=== PATIENT | female | born 1985 | race Caucasian/White ===

== ENCOUNTER 2016-11-02 20:53 | Emergency (ER) | payer BC ==
[2016-11-02 21:07] VITALS: BP 129/69; PULSE 81; TEMP 97.6; BMI 30.4
--- NOTE | 2016-11-02 21:07 | PDOC ---
Rapid Medical Evaluation Time Seen by Provider: 11/02/16 21:02 Medical Evaluation: Allergies Allergy/AdvReac Type Severity Reaction Status Date / Time codeine [Codeine] Allergy Unknown Verified 06/19/15 13:15 Penicillins Allergy Unknown Verified 06/19/15 13:15 gentamycin Allergy Unknown Uncoded 06/18/15 22:42 11/02/16 21:03 31 yo F c/o cp/left upper back pain since this afternoon with nausea/chills while at work. Denies any cough/fever. Pt had similiar symptoms x1.5 year ago while taking wellbutrin for smoking cessation.
--- NOTE | 2016-11-02 21:46 | PDOC ---
History of Present Illness - General History Source: Patient Exam Limitations: No Limitations <Felipe Hood - Last Filed: 11/02/16 22:13> <Enio Garcia - Last Filed: 11/03/16 01:53> - General Chief Complaint: Chest Pain Stated Complaint: CHEST PAINS Time Seen by Provider: 11/02/16 21:02 - History of Present Illness Initial Comments: 11/02/16 21:57 The patient is a 31 year old female, with a significant past medical history of anxiety and depression, who presents to the emergency department with chest pain onset today. She describes the pain as an intermittent pressure, ranging from mild to moderate, without radiation or modifying factors. She notes that when the patient is onset it usually lasts a few minutes. She also reports back pain associated with her symptoms, that is mild in severity. She notes that she had similar episode of chest pain when she had an anxiety attack The patient denies shortness of breath, headache and dizziness. Denies fever, chills, nausea, vomit, diarrhea and constipation. Denies dysuria, frequency, urgency and hematuria. Allergies: Codeine and penicillin Past surgical history: Tubal Ligation Social history: Former smoker (15 year use of a pack a day). No alcohol or drug use reported PMD - Dr. Jayshree Elmore (Felipe Hood) Past History <Felipe Hood - Last Filed: 11/02/16 22:13> - Past Medical History Psychiatric Problems: Yes (depression) - Surgical History Abdominal Surgery: Yes - Immunization History Immunization Up to Date: No - Psycho/Social/Smoking Cessation Hx Anxiety: No Suicidal Ideation: No Smoking Status: Yes Smoking History: Former smoker Have you smoked in the past 12 months: No Number of Cigarettes Smoked Daily: 10 If you are a former smoker, when did you quit?: 06/13/15 Information on smoking cessation initiated: No Hx Alcohol Use: No Drug/Substance Use Hx: No Substance Use Type: None <Enio Garcia - Last Filed: 11/03/16 01:53> - Past Medical History Allergies/Adverse Reactions: Allergies Allergy/AdvReac Type Severity Reaction Status Date / Time codeine [Codeine] Allergy Unknown Verified 11/02/16 21:03 Penicillins Allergy Unknown Verified 11/02/16 21:03 gentamycin Allergy Unknown Uncoded 11/02/16 21:03 Home Medications: Ambulatory Orders NK [No Known Home Medication] 11/02/16 Review of Systems - Review of Systems Able to Perform ROS?: Yes <Felipe Hood - Last Filed: 11/02/16 22:13> <Enio Garcia - Last Filed: 11/03/16 01:53> - Review of Systems Comments:: 11/02/16 21:57 CONSTITUTIONAL: No fever, no chills, no fatigue EYES: No visual changes ENT: No ear pain, no sore throat CARDIOVASCULAR: +Chest pain. No palpitations RESPIRATORY: No cough, no SOB GI: No abdominal pain, no nausea, no vomiting, no constipation, no diarrhea GENITOURINARY: No dysuria, no frequency, no hematuria MUSKULOSKELETAL: +Back pain. No joint pain, no myalgias SKIN: No rash NEURO: No headache (Felipe Hood) *Physical Exam <Felipe Hood - Last Filed: 11/02/16 22:13> <Enio Garcia - Last Filed: 11/03/16 01:53> - Vital Signs Last Vital Signs Temp Pulse Resp BP Pulse Ox 97.6 F 81 18 129/69 100 11/02/16 21:04 11/02/16 21:04 11/02/16 21:04 11/02/16 21:04 11/02/16 21:04 - Physical Exam Comments: 11/02/16 21:57 CONSTITUTIONAL: Well-appearing; well-nourished; in no apparent distress HEAD: Normocephalic; atraumatic EYES: PERRL; EOM intact ENMT: External appears normal; normal oropharynx NECK: Supple; non-tender; no cervical lymphadenopathy CARD: Normal S1, S2; no murmurs, rubs, or gallops RESP: Normal chest excursion with respiration; breath sounds clear and equal bilaterally; no wheezes, rhonchi, or rales ABD: Soft, non-distended; non-tender; no palpable organomegaly, no palpable hernias MUSCULOSKELETAL: +Reproducible left anterior chest wall tenderness. EXT: Normal ROM in all four extremities; non-tender to palpation; distal pulses intact SKIN: Warm, dry, no rash NEURO: No focal neurological deficiencies. (Felipe Hood) Heart Score/ECG Review #1 ECG reviewed & interpreted by me at: 22:14 <Felipe Hood - Last Filed: 11/02/16 22:13> <Enio Garcia - Last Filed: 11/03/16 01:53> #1 11/02/16 22:14 Ventricular rate: 70 bpm Normal sinus rhythm (Felipe Hood) ED Treatment Course - LABORATORY CBC & Chemistry Diagram: 11/02/16 23:35 11/02/16 23:35 <Enio Garcia - Last Filed: 11/03/16 01:53> - ADDITIONAL ORDERS Additional order review: Laboratory Results 11/02/16 11/02/16 23:35 23:35 INR 0.97 D-Dimer < 200 Sodium Cancelled Potassium Cancelled Chloride Cancelled Carbon Dioxide Cancelled Anion Gap Cancelled BUN Cancelled Creatinine Cancelled Creat Clearance w eGFR Cancelled Random Glucose Cancelled Calcium Cancelled Total Bilirubin Cancelled AST Cancelled ALT Cancelled Alkaline Phosphatase Cancelled Creatine Kinase Cancelled Troponin I Cancelled Total Protein Cancelled Albumin Cancelled 11/02/16 23:35 RBC 4.80 MCV 87.9 MCHC 32.5 RDW 15.1 D MPV 8.4 Neutrophils % 81.2 D Lymphocytes % 14.0 D Monocytes % 4.2 Eosinophils % 0.4 Basophils % 0.2 - RADIOLOGY Radiology Studies Ordered: Category Date Time Status CHEST PA & LAT [RAD] Stat Radiology 11/02/16 22:15 Taken Medical Decision Making <Felipe Hood - Last Filed: 11/02/16 22:13> <Enio Garcia - Last Filed: 11/03/16 01:53> - Medical Decision Making 11/03/16 01:52 Patient is a well-appearing 31-year-old female who presents with atypical chest discomfort for the past several hours prior to arrival. In the ER, patient is awake and alert, anxious appearing, with reproducible left parasternal tenderness to palpation. CBC is within normal limit. EKG reveals no evidence of acute ischemia or right sided heart strain. Patient is low probability for PE and d-dimer is within normal limit at this time. Chest x-ray reveals no evidence of cardiomegaly, there is no infiltrate or effusion. I do not suspect ACS or PE at this time. Will discharge with outpatient follow-up as needed. ( Enio Garcia) *DC/Admit/Observation/Transfer <Felipe Hood - Last Filed: 11/02/16 22:13> <Enio Garcia - Last Filed: 11/03/16 01:53> Diagnosis at time of Disposition: Atypical chest pain - Discharge Dispostion Disposition: HOME Condition at time of disposition: Stable - Referrals Referrals: Jayshree Elmore MD [Primary Care Provider] - - Patient Instructions Printed Discharge Instructions: DI for Atypical Chest Pain - Attestations Scribe Attestion: 11/02/16 21:58 Documentation prepared by Felipe Hood, acting as medical records coder for Enio Garcia MD (Felipe Hood) Physician Attestion: 11/03/16 01:52 The documentation was prepared by the scribe under my direct supervision. I have reviewed the documentation which correctly represents the findings, medical decision-making and critical action taken by me. (Enio Garcia)
[2016-11-03 00:09] LABS: BASOPHIL 0.2 % (0-2.0); EOSINOPHIL 0.4 % (0-4.5); MCH 28.5 pg (25.7-33.7); MCHC 32.5 g/dl (32.0-36.0); MEAN CELL VOLUME 87.9 fl (80-96); MEAN PLT VOLUME 8.4 fl (7.5-11.1); NEUTROPHILS 81.2 % (42.8-82.8); PLATELET COUNT 273 K/MM3 (134-434); RDW 15.1 % (11.6-15.6); WHITE BLOOD COUNT 13.9 K/mm3 (4.0-10.0)
[2016-11-03 00:34] LABS: INR 0.97 (0.82-1.09)
[2016-11-03 01:22] LABS: D-DIMER < 200 ng/ml (<200-235)
[2016-11-03 01:46] LABS: ALBUMIN 3.7 g/dl (3.4-5.0); ANION GAP 9 (8-16); BILIRUBIN,TOTAL 0.4 mg/dL (0.2-1.0); CALCIUM 8.1 mg/dL (8.5-10.1); CO2 26 mmol/L (21-32); CREATININE 0.7 mg/dL (0.55-1.02); GLUCOSE,RANDOM 88 mg/dL (74-106); SGOT/AST 12 U/L (15-37); SGPT/ALT 18 U/L (12-78); TOT PROT 7.2 g/dl (6.4-8.2)
[2016-11-03 01:48] LABS: ALK PHOS 63 U/L (45-117); TROPONIN I < 0.02 ng/ml (0.00-0.05)
--- NOTE | 2016-11-03 14:11 | EKG ---
Test Reason : Blood Pressure : / mmHG Vent. Rate : 070 BPM Atrial Rate : 070 BPM P-R Int : 146 ms QRS Dur : 098 ms QT Int : 426 ms P-R-T Axes : 040 063 035 degrees QTc Int : 460 ms NORMAL SINUS RHYTHM NORMAL ECG WHEN COMPARED WITH ECG OF 19-JUN-2015 13:10, NO SIGNIFICANT CHANGE WAS FOUND Confirmed by LEO JACOBS MD ([id number]) on 11/03/2016 2:11:04 PM Referred By: Confirmed By:LEO JACOBS MD
== END 2016-11-03 02:00 | disposition home or self-care (01) ==
LOC: JER 20:53
DX: R07.89 Other chest pain (principal); F41.8 Other specified anxiety disorders
CPT/HCPCS: 36415; 71020-TC; 80053; 82550; 84484; 85025; 85379; 85610; 93005; 93010; 99281-25

== ENCOUNTER 2017-05-31 14:52 | Emergency (ER) | payer BC ==
[2017-05-31 15:19] VITALS: BP 106/70; PULSE 70; TEMP 97.9; BMI 66.1
[2017-05-31] MEDS ORDERED: LORazepam 1 MG TABLET PO ONE (15:26)
--- NOTE | 2017-05-31 15:40 | PDOC ---
History of Present Illness - General Stated Complaint: CHEST PAIN Time Seen by Provider: 05/31/17 15:03 History Source: Patient - History of Present Illness Presenting Symptoms: Chest Pain Location: reports: substernal Past History - Past Medical History Allergies/Adverse Reactions: Allergies Allergy/AdvReac Type Severity Reaction Status Date / Time codeine [Codeine] Allergy Unknown Verified 05/31/17 15:19 Penicillins Allergy Unknown Verified 05/31/17 15:19 gentamycin Allergy Unknown Uncoded 05/31/17 15:19 Home Medications: Ambulatory Orders Alprazolam [Xanax] 0.25 mg PO TID PRN #10 tablet MDD 4mg 05/31/17 Psychiatric Problems: Yes (depression) - Surgical History Abdominal Surgery: Yes - Immunization History Immunization Up to Date: No - Suicide/Smoking/Psychosocial Hx Smoking Status: Yes Smoking History: Former smoker Have you smoked in the past 12 months: No Number of Cigarettes Smoked Daily: 10 If you are a former smoker, when did you quit?: 2yrs Information on smoking cessation initiated: No Hx Alcohol Use: No Drug/Substance Use Hx: No Substance Use Type: None Review of Systems - Review of Systems Constitutional: No: Chills, Fever Respiratory: Yes: Shortness of Breath Cardiac (ROS): Yes: Chest Pain, Palpitations. No: Lightheadedness ABD/GI: No: Nausea, Vomiting *Physical Exam - Vital Signs Last Vital Signs Temp Pulse Resp BP Pulse Ox 97.9 F 70 18 106/70 100 05/31/17 15:04 05/31/17 15:04 05/31/17 15:04 05/31/17 15:04 05/31/17 15:04 - Physical Exam Comments: 05/31/17 15:39 appears anxious and crying in ED General Appearance: Yes: Appropriately Dressed Neck: positive: Supple Respiratory/Chest: positive: Lungs Clear, Normal Breath Sounds. negative: Respiratory Distress Cardiovascular: positive: Regular Rate, S1, S2 Gastrointestinal/Abdominal: positive: Soft. negative: Tender Extremity: positive: Normal Inspection Integumentary: positive: Dry, Warm Neurologic: positive: Fully Oriented, Alert, Normal Mood/Affect Heart Score/ECG Review - ECG Intrepretation Comment:: 05/31/17 15:38 Twelve-lead EKG was performed and reviewed by me. There is normal sinus rhythm with a normal rate. The axis is normal. The intervals are normal. There are no ST or T wave abnormalities. Impression: Normal twelve-lead EKG ED Treatment Course - RADIOLOGY Radiology Studies Ordered: Category Date Time Status CHEST PA & LAT [RAD] Stat Radiology 05/31/17 16:04 Completed - Medications Given in the ED: ED Medications Discontinued Medications Generic Name Dose Route Start Last Admin Trade Name Freq PRN Reason Stop Dose Admin Lorazepam 1 mg 05/31/17 15:26 05/31/17 15:31 Ativan - PO 05/31/17 15:27 1 mg ONCE ONE Administration Medical Decision Making - Medical Decision Making 05/31/17 15:36 32-year-old female, history of anxiety that she states started after quitting smoking 2 years ago, here with burning chest pain with shortness of breath, palpitations and tingling to left fingers that started yesterday and has been intermittent. Patient reports that symptoms feels like her anxiety, but worse. No diaphoresis, n/v. No RF for DVT/PE. States she has seen a therapist in the past for her anxiety but not on meds. States she usually tries to alleviate anxiety with deep breaths only. States last time she had anxiety was several months ago. No new stressors. No SI/HI. No illicit drug use. No medical hx See exam Anxiety EKG done given CP and unremarkable -ativan -reassess 05/31/17 15:38 05/31/17 15:39 05/31/17 16:02 Patient feels better with ativan but still concerned about chest pain. Percs out and not concerned for dissection. Will get chest x-ray, more for reassurance and to help alleviate anxiety in pt. Patient reports that she is status post tubal ligation and declines urine collection 05/31/17 16:44 CXR read as negative. Pt stable and feels well enough for discharge. Now informs me that while in ED, she called and made an appointment with her PMD. Will prescribe small amount of xanax to take as needed until she sees her PMD 05/31/17 16:51 *DC/Admit/Observation/Transfer Diagnosis at time of Disposition: Anxiety, Atypical chest pain - Discharge Dispostion Disposition: HOME Condition at time of disposition: Improved - Prescriptions Prescriptions: Alprazolam [Xanax] 0.25 mg PO TID PRN #10 tablet MDD 4mg PRN Reason: Anxiety - Referrals Referrals: Jayshree Elmore MD [Primary Care Provider] - - Patient Instructions Printed Discharge Instructions: DI for Anxiety -- Adult Additional Instructions: Take xanax as directed and follow up with your PMD for further evaluation
--- NOTE | 2017-05-31 18:20 | PDOC ---
*Physical Exam - Vital Signs Last Vital Signs Temp Pulse Resp BP Pulse Ox 97.9 F 70 18 106/70 100 05/31/17 15:04 05/31/17 15:04 05/31/17 15:04 05/31/17 15:04 05/31/17 15:04 - Physical Exam Comments: 05/31/17 18:18 The patient was examined by SYDNI Dsouza under my direct supervision. I personally evaluated the patient. I concur with the above findings and the plan of care. 32-year-old female presents with atypical chest discomfort. EKG shows no evidence of acute ischemia or dysrhythmia; there is no evidence of right sided heart strain. ACS is highly unlikely at this time. Patient is negative for PE by perc rule. Chest x-ray shows no evidence of acute infiltrate or effusion pneumothorax. Patient's symptoms resolved after administration of benzodiazepine. Will discharge. ED Treatment Course - Medications Given in the ED: ED Medications Discontinued Medications Generic Name Dose Route Start Last Admin Trade Name Freq PRN Reason Stop Dose Admin Lorazepam 1 mg 05/31/17 15:26 05/31/17 15:31 Ativan - PO 05/31/17 15:27 1 mg ONCE ONE Administration *DC/Admit/Observation/Transfer Diagnosis at time of Disposition: Anxiety, Atypical chest pain - Discharge Dispostion Disposition: HOME Condition at time of disposition: Improved - Prescriptions Prescriptions: Alprazolam [Xanax] 0.25 mg PO TID PRN #10 tablet MDD 4mg PRN Reason: Anxiety Alprazolam [Xanax] 0.25 mg PO TID PRN #10 tablet MDD 4mg PRN Reason: Anxiety - Referrals Referrals: Jayshree Elmore MD [Primary Care Provider] - - Patient Instructions Printed Discharge Instructions: DI for Anxiety -- Adult Additional Instructions: Take xanax as directed and follow up with your PMD for further evaluation - Post Discharge Activity
--- NOTE | 2017-06-01 10:44 | EKG ---
Test Reason : Blood Pressure : / mmHG Vent. Rate : 075 BPM Atrial Rate : 075 BPM P-R Int : 140 ms QRS Dur : 088 ms QT Int : 398 ms P-R-T Axes : 037 056 038 degrees QTc Int : 444 ms NORMAL SINUS RHYTHM NORMAL ECG WHEN COMPARED WITH ECG OF 02-NOV-2016 21:10, NO SIGNIFICANT CHANGE WAS FOUND Confirmed by LEO JACOBS MD ([id number]) on 06/01/2017 10:43:53 AM Referred By: Confirmed By:LEO JACOBS MD
== END 2017-05-31 17:04 | disposition home or self-care (01) ==
LOC: JER 14:52
DX: R07.89 Other chest pain (principal); F41.9 Anxiety disorder, unspecified; Z87.891 Personal history of nicotine dependence
CPT/HCPCS: 71020-TC; 93005; 93010; 99282-25